=== PATIENT | male | born 1950 | race Caucasian/White ===

== ENCOUNTER 2023-12-20 06:54 | Inpatient (IN) | payer OTHER ==
[~2023-12-20] VITALS: Ht 170.2 cm; Wt 89.8 kg
[2023-12-20] MEDS ORDERED: AZITHROMYCIN 250 MG TABLET PO ONE (07:15)
[2023-12-20] MEDS ORDERED: CEFTRIAXONE 1 G in IV DEXTROSE 5% 50 ML IV ONE (07:15)
[2023-12-20] MEDS ORDERED: DEXAMETHASONE SOD PHOSPHATE 4 MG INJ IV ONE (07:15)
[2023-12-20] MEDS ORDERED: AZITHROMYCIN 250 MG TABLET ONE (07:16)
[2023-12-20] MEDS ORDERED: CEFTRIAXONE 1 G VIAL ONE (07:16)
[2023-12-20] MEDS ORDERED: DEXAMETHASONE SOD PHOSPHATE 4 MG INJ ONE (07:16)
[2023-12-20 07:57] LABS: BASOPHILS # (AUTO) 0.1 K/UL (0.0-0.2); EOSINOPHILS # (AUTO) 0.5 K/uL (0.0-0.7); HEMATOCRIT 46.8 % (36.7-47.1); HEMOGLOBIN 15.4 g/dL (12.5-16.3); LYMPHOCYTES # (AUTO) 1.9 K/uL (0.8-4.8); LYMPHOCYTES % (AUTO) 25.9 % (20.5-51.5); MEAN CORPUSCULAR HEMOGLOBIN 28.7 uug (23.8-33.4); MEAN CORPUSCULAR HGB CONC 33 g/dL (32.5-36.3); MEAN CORPUSCULAR VOLUME 87.1 fL (73.0-96.2); MONOCYTES # (AUTO) 0.8 K/uL (0.1-1.30); MONOCYTES % (AUTO) 10.8 % (0.0-11.0); NEUTROPHILS % (AUTO) 55.3 % (38.5-71.5); PLATELET COUNT (AUTO) 252 K/uL (152-348); RED BLOOD CELL COUNT(AUTO) 5.37 MIL/uL (4.06-5.63); RED CELL DISTRIBUTION WIDTH 14.4 % (12.1-16.2); WHITE BLOOD COUNT (AUTO) 7.2 K/uL (3.6-10.2)
[2023-12-20 08:05] LABS: DIFFERENTIAL COMMENT 1
[2023-12-20 08:20] LABS: CALCIUM 8.5 mg/dL (8.5-10.1); CARBON DIOXIDE 27 mmol/L (21-32); CHLORIDE 107 mmol/L (98-107); CREATININE 1.4 mg/dL (0.6-1.3); GLUCOSE 106 mg/dL (74-106); POTASSIUM 4.5 mmol/L (3.5-5.1); SODIUM SERUM 140 mmol/L (136-145); UREA NITROGEN, BLOOD 26 mg/dL (7-18)
[2023-12-20 08:38] LABS: ALANINE AMINOTRANSFERASE 84 U/L (16-63); ALKALINE PHOSPHATASE 113 U/L (50-136); ASPARTATE AMINOTRANSFERASE 56 U/L (15-37); BILIRUBIN,DIRECT 0.1 mg/dL (0.0-0.2); BILIRUBIN,TOTAL 0.3 mg/dL (0.2-1.0); NT-PRO BNP 5314 pg/mL (0-125); TOTAL PROTEIN, SERUM 7.4 g/dL (6.4-8.2)
[2023-12-20] MEDS ORDERED: hydrALAZINE HCL 20 MG/1 ML VIAL IV ONE (09:30)
[2023-12-20] MEDS ORDERED: FUROSEMIDE 40 MG/4 ML VIAL IV ONE (09:30)
[2023-12-20] MEDS ORDERED: NITROGLYCERIN OINT 1 GM PACKET TP ONE ×2 (09:30)
[2023-12-20] MEDS ORDERED: FUROSEMIDE 40 MG/4 ML VIAL ONE (09:30)
[2023-12-20] MEDS ORDERED: hydrALAZINE HCL 20 MG/1 ML VIAL ONE (09:30)
[2023-12-20] MEDS ORDERED: ACETAMINOPHEN 325 MG TABLET PO PRN (11:30)
[2023-12-20] MEDS ORDERED: MAGNESIUM HYDROXIDE 30 ML LIQUID UDC PO PRN (11:30)
[2023-12-20] MEDS ORDERED: ZOLPIDEM 5 MG TABLET PO PRN (11:30)
[2023-12-20] MEDS ORDERED: REMEDY ESSENTIAL ZINC PASTE 113 GM TP PRN (11:30)
[2023-12-20] MEDS ORDERED: ONDANSETRON 4 MG/2 ML VIAL IV PRN (11:30)
[2023-12-20 13:47] VITALS: BP 140/96; TEMP 98; O2SAT 94
[2023-12-20] MEDS: CARVEDILOL 3.125 MG TABLET PO SCH ×2 (13:53→20:18)
[2023-12-20] MEDS: FUROSEMIDE 40 MG/4 ML VIAL IVP SCH (20:18)
[2023-12-20] MEDS: HEPARIN SODIUM,PORCINE 5,000 UNITS/ML VIAL SQ SCH (20:19)
[2023-12-20 20:55] VITALS: BP 130/84; TEMP 98.6; O2SAT 93
[2023-12-20 23:02] VITALS: BP 121/75; TEMP 98.8; O2SAT 91
[2023-12-21 05:03] VITALS: BP 119/80; TEMP 99.2; O2SAT 93
[2023-12-21] MEDS ORDERED: PANTOPRAZOLE SODIUM 40 MG TABLET.DR PO SCH (07:00)
[2023-12-21] MEDS ORDERED: CEFTRIAXONE 1 G in IV DEXTROSE 5% 50 ML IV SCH (07:00)
[2023-12-21 07:34] LABS: BASOPHILS % (AUTO) 0.3 % (0.0-2.0); EOSINOPHILS % (AUTO) 0.1 % (0.0-7.0); HEMATOCRIT 43.4 % (36.7-47.1); HEMOGLOBIN 14.4 g/dL (12.5-16.3); LYMPHOCYTES # (AUTO) 1.1 K/uL (0.8-4.8); LYMPHOCYTES % (AUTO) 9.5 % (20.5-51.5); MEAN CORPUSCULAR HEMOGLOBIN 28.5 uug (23.8-33.4); MEAN CORPUSCULAR HGB CONC 33 g/dL (32.5-36.3); MEAN CORPUSCULAR VOLUME 85.9 fL (73.0-96.2); MONOCYTES # (AUTO) 0.8 K/uL (0.1-1.30); MONOCYTES % (AUTO) 6.9 % (0.0-11.0); NEUTROPHILS # (AUTO) 9.7 K/uL (1.8-8.9); NEUTROPHILS % (AUTO) 83.2 % (38.5-71.5); PLATELET COUNT (AUTO) 285 K/uL (152-348); RED BLOOD CELL COUNT(AUTO) 5.05 MIL/uL (4.06-5.63); RED CELL DISTRIBUTION WIDTH 14.2 % (12.1-16.2); WHITE BLOOD COUNT (AUTO) 11.7 K/uL (3.6-10.2)
[2023-12-21 07:43] LABS: DIFFERENTIAL COMMENT 1
[2023-12-21 07:57] LABS: CALCIUM 8.4 mg/dL (8.5-10.1); CARBON DIOXIDE 25 mmol/L (21-32); CHLORIDE 107 mmol/L (98-107); CHOLESTEROL 146 mg/dL (<200); CREATININE 1.4 mg/dL (0.6-1.3); GLUCOSE 143 mg/dL (74-106); HDL CHOLESTEROL 42 mg/dL (40-60); POTASSIUM 4.1 mmol/L (3.5-5.1); SODIUM SERUM 142 mmol/L (136-145); TRIGLYCERIDES 95 MG/DL (30-150); UREA NITROGEN, BLOOD 35 mg/dL (7-18)
[2023-12-21] MEDS ORDERED: AZITHROMYCIN IV 500 MG in IV DEXTROSE 5% 250 ML IV SCH (08:00)
[2023-12-21] MEDS: HEPARIN SODIUM,PORCINE 5,000 UNITS/ML VIAL SQ SCH (08:31)
[2023-12-21] MEDS: CARVEDILOL 3.125 MG TABLET PO SCH (08:45)
[2023-12-21] MEDS: FUROSEMIDE 40 MG/4 ML VIAL IVP SCH (08:46)
[2023-12-21 08:47] VITALS: BP 135/84; TEMP 97.4; O2SAT 97
[2023-12-21] MEDS ORDERED: PANTOPRAZOLE SODIUM 40 MG VIAL IV SCH (09:00)
[2023-12-21 11:25] VITALS: BP 114/76; TEMP 97.5; O2SAT 96
[2023-12-21 12:00] VITALS: BP 125/84; TEMP 97.5; O2SAT 96
[2023-12-21] MEDS ORDERED: CARV12.52 PO (14:51)
[2023-12-21] MEDS ORDERED: METH4TAB3 PO (14:51)
[2023-12-21] MEDS ORDERED: ATOR20TA PO (14:51)
[2023-12-21] MEDS ORDERED: ASPI-495 PO (14:51)
[2023-12-21] MEDS: ASPIRIN 81 MG TAB.CHEW PO SCH ×2 (15:39→15:42)
[2023-12-21 15:47] VITALS: BP 136/88; TEMP 97.6; O2SAT 96
[2023-12-21] MEDS ORDERED: CARVEDILOL 12.5 MG TABLET PO SCH (21:00)
[2023-12-21] MEDS ORDERED: ATORVASTATIN 20 MG TABLET PO SCH (21:00)
== END 2023-12-21 16:30 | disposition home or self-care (01) | DRG 291 ==
LOC: ER 06:58 → TELE3 11:22 → MEDSURG3 12-21 09:55
PROVIDERS: ADMIT Nurse Practitioner Acute Care; ATTEND Nurse Practitioner Acute Care
DX: I11.0 Hypertensive heart disease with heart failure (principal); I50.21 Acute systolic (congestive) heart failure; N17.9 Acute kidney failure, unspecified; I16.0 Hypertensive urgency; Z86.16 Personal history of COVID-19; E66.9 Obesity, unspecified; Z68.32 Body mass index [BMI] 32.0-32.9, adult; I25.5 Ischemic cardiomyopathy; F17.200 Nicotine dependence, unspecified, uncomplicated; R74.01 Elevation of levels of liver transaminase levels; J40 Bronchitis, not specified as acute or chronic
CPT/HCPCS: 36415; 71045; 83605; 83735; 84100; 84443; 84484; 85025; 85730; 87040; 93005; 93307; A4606; A4663; G0378; J0360; J0456; J0696; J1100; J1644; J1940; J7050; Q0144